=== PATIENT | male | born 1955 ===

== ENCOUNTER 2019-03-21 16:13 | Inpatient (IN) | payer OTHER ==
[~2019-03-21] VITALS: Ht 170.2 cm; Wt 111.1 kg
[~2019-03-21 16:13] MED LIST: MEDROLPACK PO; ZYRTEC10 MG PO
[2019-03-21] MEDS ORDERED: NIFEDIPINE ER30 M1 (17:06)
[2019-03-21] MEDS ORDERED: COZAAR50 MG (17:06)
[2019-03-23] MEDS ORDERED: ATORVASTATIN CA10 MG PO (09:43)
[2019-03-23] MEDS ORDERED: NIFEDIPINE ER60 MG PO (09:43)
[2019-03-23] MEDS ORDERED: LOSARTAN POTAS100 MG PO (09:43)
[2019-03-23] MEDS ORDERED: PLAVIX75 MG PO (09:43)
== END 2019-03-23 10:04 | disposition home or self-care (01) | DRG 66 ==
LOC: ER 16:13 → MEDJ 03-22 08:22
PROVIDERS: ADMIT Internal Medicine
PROC: BW28ZZZ Computerized Tomography (CT Scan) of Head (ICD-10-PCS; principal; 2019-03-21)
PROC: B246ZZZ Ultrasonography of Right and Left Heart (ICD-10-PCS; 2019-03-22)
PROC: B345ZZZ Ultrasonography of Bilateral Common Carotid Arteries (ICD-10-PCS; 2019-03-22)
PROC: B030ZZZ Magnetic Resonance Imaging (MRI) of Brain (ICD-10-PCS; 2019-03-22)
PROC: 4A12X4Z Monitoring of Cardiac Electrical Activity, External Approach (ICD-10-PCS; 2019-03-22)
DX: I63.81 Other cerebral infarction due to occlusion or stenosis of small artery (principal); I16.0 Hypertensive urgency; R47.1 Dysarthria and anarthria; E66.8 Other obesity
CPT/HCPCS: 70551

== ENCOUNTER 2023-03-14 10:56 | Emergency (ER) | payer OTHER ==
[~2023-03-14] VITALS: Ht 170.2 cm; Wt 104.3 kg
[~2023-03-14 10:56] MED LIST changes: +ATORVASTATIN CA10 MG PO; +COZAAR50 MG; +LOSARTAN POTAS100 MG PO; +NIFEDIPINE ER30 M1; +NIFEDIPINE ER60 MG PO; +PLAVIX75 MG PO
[2023-03-14] MEDS ORDERED: HYDROCHLOROTHIA25 MG PO (11:25)
== END 2023-03-14 12:46 | disposition home or self-care (01) ==
LOC: ER 10:56
DX: T78.3XXA Angioneurotic edema, initial encounter (principal); I10 Essential (primary) hypertension

== ENCOUNTER 2023-11-25 19:43 | Emergency (ER) | payer OTHER ==
[~2023-11-25] VITALS: Ht 170.2 cm; Wt 108.9 kg
[~2023-11-25 19:43] MED LIST changes: +HYDROCHLOROTHIA25 MG PO
[2023-11-25 20:56] LABS: MEAN CELL VOLUME 98.2 fL (80.0-100.00); MEAN CORPUSCULAR HEMOGLOBIN 34.2 pg (27.00-32.0); MEAN CORPUSCULAR HGB CONC 34.9 g/dl (32.0-36.0); PLATELET COUNT 179 K/uL (150-450); RED BLOOD COUNT 4.38 M/uL (4.00-6.00)
[2023-11-25 21:21] LABS: ALBUMIN 3.5 gm/dL (3.4-5.0); BILIRUBIN TOTAL 0.88 mg/dL (0.3-1.2); CALCIUM 9.1 mg/dL (8.5-10.1); CREATININE SERUM 1.56 mg/dL (0.70-1.30); GFR 44.75; GLOBULINA 4.3 G/DL (2.4-3.5); TOTAL PROTEIN 7.8 gm/dL (6.4-8.2)
[2023-11-25 21:28] LABS: POTASSIUM 2.86 mEq/L (3.5-5.1)
[2023-11-25] MEDS ORDERED: CARDURA1 MG (21:33)
[2023-11-25 21:34] LABS: URINE APPEARANCE Clear; URINE BILIRRUBIN Small (NEGATIVE); URINE BLOOD Negative; URINE COLOR Dark Yellow; URINE GLUCOSE Negative (NEGATIVE); URINE LEUKOCYTE Trace; URINE NITRATE Negative; URINE PROTEIN 30 (NEGATIVE)
[2023-11-25 21:34] LABS: ABG PH 7.544 (7.35-7.45); ABG PO2 56.5 mmHg (80-100); ABG pCO2 31.3 mmHg (35-45); BASE EXCESS 4.6 mmol/l; SaO2 93.1 %
[2023-11-25 21:35] LABS: BICARBONATE 26.5 mmol/l (23-25); Tco2 27.4 mmol/l; allen test SATISFACTORY; o2 21 %; puncture site RADIAL RIGHT
[2023-11-25 21:37] LABS: URINE BACTERIA 15.1 uL (0.0-1933); URINE EPITHELIAL CELLS 6.3 uL (0.0-38.8); URINE RBC 3.4 uL (0.0-20.8); URINE WBC 3.5 uL (0.0-23.2)
[2023-11-26 06:10] LABS: HEMOGLOBIN 15.1 g/dL (13-16.00); MEAN CELL VOLUME 98.6 fL (80.0-100.00); MEAN CORPUSCULAR HEMOGLOBIN 34.6 pg (27.00-32.0); MEAN CORPUSCULAR HGB CONC 35.1 g/dl (32.0-36.0); PLATELET COUNT 185 K/uL (150-450); RED BLOOD COUNT 4.36 M/uL (4.00-6.00); RED CELL DISTRIBUTION WIDTH 14.3 % (11.5-14.5)
[2023-11-26 07:04] LABS: ALBUMIN 3.3 gm/dL (3.4-5.0); BILIRUBIN TOTAL 0.77 mg/dL (0.3-1.2); CALCIUM 8.5 mg/dL (8.5-10.1); CREATININE SERUM 1.12 mg/dL (0.70-1.30); GFR 65.59; GLOBULINA 4.4 G/DL (2.4-3.5); POTASSIUM 3.04 mEq/L (3.5-5.1); TOTAL PROTEIN 7.7 gm/dL (6.4-8.2)
== END 2023-11-26 07:44 | disposition home or self-care (01) ==
LOC: ER 19:43
PROVIDERS: General Practice
DX: B34.9 Viral infection, unspecified (principal); I10 Essential (primary) hypertension; E87.6 Hypokalemia; Z20.822 Contact with and (suspected) exposure to COVID-19